=== PATIENT | male | born 1995 | race Two or more races ===

== ENCOUNTER 2019-06-14 02:14 | Inpatient (IN) | payer OTHER ==
[~2019-06-14] VITALS: Ht 170.2 cm; Wt 52.3 kg
[2019-06-14] MEDS ORDERED: ZOLPIDEM TARTRATE 10 MG TABLET PO PRN (06:00)
[2019-06-14] MEDS ORDERED: HALOPERIDOL 5 MG TABLET PO PRN (06:00)
[2019-06-14] MEDS ORDERED: LORazepam 1 MG TABLET PO PRN (06:00)
[2019-06-14 06:02] VITALS: BP 121/82
[2019-06-14 06:03] VITALS: BP 121/82
[2019-06-14 09:48] VITALS: BP 100/62
[2019-06-14] MEDS ORDERED: ACETAMINOPHEN 325 MG TABLET PO PRN (11:30)
[2019-06-14] MEDS ORDERED: MAG HYDROX/AL HYDROX/SIMETH ES 30 ML SUSPENSION UDCUP PO PRN (11:30)
[2019-06-14] MEDS ORDERED: LOPERAMIDE HCL 2 MG CAPSULE PO PRN (11:30)
[2019-06-14] MEDS ORDERED: CloNIDine HCL 0.1 MG TABLET PO PRN (11:30)
[2019-06-14] MEDS ORDERED: DOCUSATE SODIUM 100 MG CAPSULE PO PRN (11:30)
[2019-06-14] MEDS ORDERED: NICOTINE 14 MG/24 HOUR PATCH TD PRN (11:30)
[2019-06-14] MEDS ORDERED: ALBUTEROL SULFATE HFA 90 MCG/PUFF 8 GM INHALER IH PRN (11:30)
[2019-06-14] MEDS ORDERED: PETROLATUM,WHITE 28 GM JELLY TP PRN (11:30)
[2019-06-14] MEDS ORDERED: MAGNESIUM HYDROXIDE SUSPENSION 30 ML UDCUP PO PRN (11:30)
[2019-06-14] MEDS: SERTRALINE HCL 50 MG TABLET PO SCH (11:30)
[2019-06-14] MEDS ORDERED: GuaiFENesin/D-METHORPHAN [SUGAR-FREE] 200-20MG/10 ML SYRUP UDCUP PO PRN (11:30)
[2019-06-14] MEDS ORDERED: IBUPROFEN 400 MG TABLET PO PRN (11:30)
[2019-06-14] MEDS ORDERED: ONDANSETRON HCL 4 MG TABLET PO PRN (11:30)
[2019-06-14 17:24] VITALS: BP 119/59
[2019-06-14] MEDS: RisperiDONE 1 MG TABLET PO SCH (20:24)
[2019-06-15 01:36] VITALS: BP 125/77
[2019-06-15] MEDS: SERTRALINE HCL 50 MG TABLET PO SCH (09:00)
[2019-06-15 09:33] VITALS: BP 108/62
[2019-06-15 16:00] VITALS: BP 110/75
[2019-06-15] MEDS: RisperiDONE 1 MG TABLET PO SCH (20:19)
[2019-06-16 00:21] VITALS: BP 118/62
[2019-06-16 07:16] LABS: BASOPHILS % (AUTO) 0.8 % (0.0-2.0); EOSINOPHILS % (AUTO) 6.8 % (1.0-6.0); HEMATOCRIT 47.7 % (41-53); HEMOGLOBIN 15.9 g/dL (13.5-17.5); LYMPHOCYTES # (AUTO) 1.6 K/uL (1.0-4.8); LYMPHOCYTES % (AUTO) 29.4 % (22.0-44.0); MEAN CORPUSCULAR HEMOGLOBIN 29.1 pg (26.0-34.0); MEAN CORPUSCULAR HGB CONC 33.3 G/dL (31.0-37.0); MEAN CORPUSCULAR VOLUME 87 fL (80-100); MONOCYTES # (AUTO) 0.7 K/uL (0.1-1.0); NEUTROPHILS # (AUTO) 2.8 K/uL (1.8-7.7); PLATELET COUNT (AUTO) 196 K/uL (150-450); RED BLOOD CELL COUNT(AUTO) 5.47 MIL/uL (4.50-5.90)
[2019-06-16 07:44] LABS: ALANINE AMINOTRANSFERASE 16 U/L (12-78); ALBUMIN 4.3 g/dL (3.4-5.0); ALKALINE PHOSPHATASE 108 U/L (46-116); ANION GAP 9 mmol/L (8-16); ASPARTATE AMINOTRANSFERASE 13 U/L (15-37); BILIRUBIN,TOTAL 0.4 mg/dL (0.1-1.0); CALCIUM, TOTAL 8.8 mg/dL (8.8-10.5); CARBON DIOXIDE 29 mmol/L (22-29); CHLORIDE 104 mmol/L (98-107); CHOL/HDL RATIO 2.3 (4.2-7.3); CHOLESTEROL 88 mg/dL (131-200); CREATININE 0.84 mg/dL (0.60-1.30); FREE T4 (FREE THYROXINE) 1.03 ng/dL (0.76-1.46); GLOMERULAR FILTR. RATE CALC > 60 mL/min (>60); GLUCOSE,RANDOM 96 mg/dL (70-110); HDL CHOLESTEROL 39 mg/dL (40-60); LDL CHOL (CALC.) 32 mg/dL (0-130); POTASSIUM 3.9 mmol/L (3.5-5.1); SODIUM SERUM 142 mmol/L (136-145); THYROID STIMULATING HORMONE 5.15 uIU/mL (0.36-3.74); TOTAL PROTEIN, SERUM 7.6 g/dL (6.4-8.2); TRIGLYCERIDES 83 mg/dL (15-150); UREA NITROGEN, BLOOD 10 mg/dL (7-18)
[2019-06-16] MEDS: SERTRALINE HCL 50 MG TABLET PO SCH (08:38)
[2019-06-16 10:46] VITALS: BP 100/60
[2019-06-16 19:10] VITALS: BP 116/60
[2019-06-16] MEDS: RisperiDONE 1 MG TABLET PO SCH (21:00)
[2019-06-17 00:24] VITALS: BP 112/62
[2019-06-17 08:43] VITALS: BP 115/76
[2019-06-17] MEDS: SERTRALINE HCL 50 MG TABLET PO SCH (09:08)
[2019-06-17 16:42] VITALS: BP 129/76
[2019-06-17] MEDS: RisperiDONE 1 MG TABLET PO SCH (21:00)
[2019-06-18 00:36] VITALS: BP 122/70
[2019-06-18 08:10] VITALS: BP 135/69
[2019-06-18] MEDS: SERTRALINE HCL 50 MG TABLET PO SCH (09:00)
[2019-06-18] MEDS: RisperiDONE 1 MG TABLET PO SCH (21:00)
[2019-06-19] MEDS: SERTRALINE HCL 50 MG TABLET PO SCH (08:42)
[2019-06-19] MEDS: RisperiDONE 1 MG TABLET PO SCH (20:21)
[2019-06-20] MEDS: SERTRALINE HCL 50 MG TABLET PO SCH (08:40)
[2019-06-20] MEDS: RisperiDONE 1 MG TABLET PO SCH (20:46)
[2019-06-21 08:45] VITALS: BP 134/70
[2019-06-21] MEDS: SERTRALINE HCL 50 MG TABLET PO SCH ×2 (08:45→08:52)
[2019-06-21] MEDS: RisperiDONE 1 MG TABLET PO SCH (20:32)
[2019-06-22 03:14] VITALS: BP 121/73
[2019-06-22] MEDS: SERTRALINE HCL 50 MG TABLET PO SCH (09:00)
[2019-06-22] MEDS: RisperiDONE 1 MG TABLET PO SCH (20:18)
[2019-06-23] MEDS: SERTRALINE HCL 50 MG TABLET PO SCH (08:33)
[2019-06-23 16:05] VITALS: BP 101/56
[2019-06-23] MEDS: RisperiDONE 1 MG TABLET PO SCH (20:26)
[2019-06-24] MEDS: SERTRALINE HCL 50 MG TABLET PO SCH (07:55)
[2019-06-24 17:27] VITALS: BP 139/63
[2019-06-24] MEDS: RisperiDONE 1 MG TABLET PO SCH (20:55)
[2019-06-25] MEDS: SERTRALINE HCL 50 MG TABLET PO SCH (08:23)
[2019-06-25 08:24] VITALS: BP 130/74
[2019-06-25 16:40] VITALS: BP 114/63
[2019-06-25] MEDS: RisperiDONE 1 MG TABLET PO SCH (20:15)
[2019-06-26 08:35] VITALS: BP 144/73
[2019-06-26] MEDS: SERTRALINE HCL 50 MG TABLET PO SCH (08:43)
[2019-06-26 16:31] VITALS: BP 142/67
[2019-06-26] MEDS: RisperiDONE 1 MG TABLET PO SCH (20:03)
[2019-06-27 00:55] VITALS: BP 139/80
[2019-06-27 08:03] VITALS: BP 133/92
[2019-06-27] MEDS: SERTRALINE HCL 50 MG TABLET PO SCH (08:06)
== END 2019-06-27 14:10 | disposition home or self-care (01) | DRG 885 ==
LOC: B2S 04:34
PROVIDERS: ADMIT Psychiatry & Neurology Child & Adolescent Psychiatry; ATTEND Psychiatry & Neurology Child & Adolescent Psychiatry
DX: F33.3 Major depressive disorder, recurrent, severe with psychotic symptoms (principal); R45.851 Suicidal ideations; J45.909 Unspecified asthma, uncomplicated; H91.92 Unspecified hearing loss, left ear; K59.00 Constipation, unspecified; H93.19 Tinnitus, unspecified ear; G47.00 Insomnia, unspecified; K21.9 Gastro-esophageal reflux disease without esophagitis; Z59.0 Homelessness; F41.1 Generalized anxiety disorder; Z91.14 Patient's other noncompliance with medication regimen
CPT/HCPCS: 84439; 84443; 87081